=== PATIENT | male | born 1945 | race Caucasian/White ===

== ENCOUNTER → 2024-09-27 18:48 | Outpatient (REF) | payer OTHER, SELFPAY | LOC: MRI 3T 18:48 | PROVIDERS: ATTENDING PHYSICIAN Specialist; FAMILY PHYSICIAN Family Medicine | DX: R97.20 Elevated prostate specific antigen [PSA] (principal) | CPT/HCPCS: 72197; A9575 ==

== ENCOUNTER → 2024-12-02 11:43 | Outpatient (REF) | payer OTHER, SELFPAY | LOC: PET 11:43 | PROVIDERS: ATTENDING PHYSICIAN Specialist | DX: C61 Malignant neoplasm of prostate (principal) | CPT/HCPCS: 78815; A9595 ==